=== PATIENT | female | born 1975 | race Caucasian/White ===

== ENCOUNTER → 2021-06-18 | Outpatient (CLI) | payer OTHER ==
[~2021-06-18] MED LIST: ASPIR 8181 MG PO; ASPIRIN CHEWABL81 MG PO; ASPIRIN EC81 MG PO; BENTYL 10MG CAP10 MG PO; BREO ELLIPTA 11 EACH INH; CLARITIN10 M2 PO; DOCUSATE SODIU250 MG PO; FENOFIBRATE160 MG PO; GLUCOPHAGE 500500 MG PO; HYDROCHLOROTH12.5 MG PO; HYDROCHLOROTHIA25 MG PO; HYDROCODONE-AC1 EACH PO; IBUPROFEN600 MG PO; IBUPROFEN800 MG PO; IPRAT-ALBUT 0.5-3 ML INH; JANUVIA100 MG PO; JARDIANCE10 MG PO; LISINOPRIL40 MG PO; LOPRESSOR 25 MG25 MG PO; LOPRESSOR 50 MG50 MG PO; LOPRESSOR100 MG PO; NITROSTAT0.4 MG SL; NORVASC5 MG PO; OMEGA 3 1,0001 EACH PO; PROTONIX40 MG PO; PROZAC20 MG PO; VENTOLIN HFA 66.7 GM INH; VITAMIN D21250 MCG PO; ZANAFLEX4 MG PO; ZOCOR20 MG PO
[2021-06-18 11:29] LABS: HEMOGLOBIN 12.8 gm/dl (12.3-15.3); RED BLOOD COUNT 5.08 M/UL (4.00-5.10)
[2021-06-18 11:55] LABS: BUN/CREATININE RATIO 17 (0-10)
== END ==
LOC: OPSV2 10:00
PROVIDERS: Obstetrics & Gynecology
DX: Z01.818 Encounter for other preprocedural examination (principal); N93.9 Abnormal uterine and vaginal bleeding, unspecified; I51.7 Cardiomegaly; R91.8 Other nonspecific abnormal finding of lung field; R94.31 Abnormal electrocardiogram [ECG] [EKG]
CPT/HCPCS: 36415; 71046; 80053; 81001; 85025; 93005

== ENCOUNTER → 2021-06-23 | Day surgery (SDC) | payer OTHER | END | disposition home or self-care (01) | LOC: OR 07:30 | DX: N84.0 Polyp of corpus uteri (principal); N84.1 Polyp of cervix uteri; D25.9 Leiomyoma of uterus, unspecified; N83.8 Other noninflammatory disorders of ovary, fallopian tube and broad ligament; N93.9 Abnormal uterine and vaginal bleeding, unspecified; E66.01 Morbid (severe) obesity due to excess calories; E11.9 Type 2 diabetes mellitus without complications; I10 Essential (primary) hypertension; K21.9 Gastro-esophageal reflux disease without esophagitis; F41.9 Anxiety disorder, unspecified; F32.9 Major depressive disorder, single episode, unspecified; F17.210 Nicotine dependence, cigarettes, uncomplicated; Z68.43 Body mass index [BMI] 50.0-59.9, adult; Z79.84 Long term (current) use of oral hypoglycemic drugs; Z79.899 Other long term (current) drug therapy; Z20.822 Contact with and (suspected) exposure to COVID-19 | CPT/HCPCS: 36415; 82962; 84703; C1769; J0690; J1100; J1170; J1885; J2001; J2250; J2405; J2550; J2704; J2710; J3010; J7030; J7120 ==

== ENCOUNTER → 2021-12-02 | Outpatient (CLI) | payer OTHER | LOC: KOH-I 12:00 | DX: M54.50 Low back pain, unspecified (principal) | CPT/HCPCS: 72070; 72100 ==

== ENCOUNTER 2022-03-10 14:24 | Emergency (ER) | payer OTHER | END 2022-03-10 15:30 | disposition home or self-care (01) | LOC: ER1 14:24 | DX: S63.502A Unspecified sprain of left wrist, initial encounter (principal); S60.222A Contusion of left hand, initial encounter; E11.9 Type 2 diabetes mellitus without complications; F17.210 Nicotine dependence, cigarettes, uncomplicated; E78.5 Hyperlipidemia, unspecified; I10 Essential (primary) hypertension; Z90.710 Acquired absence of both cervix and uterus; Z88.8 Allergy status to other drugs, medicaments and biological substances; W01.0XXA Fall on same level from slipping, tripping and stumbling without subsequent striking against object, initial encounter | CPT/HCPCS: 73110; 73130; 99283 ==

== ENCOUNTER → 2022-03-31 | Outpatient (CLI) | payer OTHER | LOC: KOH-I 15:51 | DX: R05.9 Cough, unspecified (principal) | CPT/HCPCS: 71046 ==